=== PATIENT | female | born 1950 | race Two or more races ===

== ENCOUNTER 2017-12-14 10:10 | Outpatient (CLI) | payer OTHER | END 2017-12-14 14:21 | disposition home or self-care (01) | LOC: RAD 10:10 | DX: R68.84 Jaw pain (principal) ==

== ENCOUNTER 2018-08-07 14:21 | Outpatient (CLI) | payer OTHER | END 2018-08-07 14:26 | disposition home or self-care (01) | LOC: RAD 14:21 | DX: S57.02XA Crushing injury of left elbow, initial encounter (principal); S77.02 Crushing injury of left hip ==

== ENCOUNTER 2018-08-29 08:26 | Outpatient (CLI) | payer OTHER | END 2018-08-29 09:09 | disposition home or self-care (01) | LOC: RAD 501 08:26 | DX: M48.061 Spinal stenosis, lumbar region without neurogenic claudication (principal) ==

== ENCOUNTER 2019-05-28 10:42 | Outpatient (CLI) | payer OTHER | END 2019-05-28 10:55 | disposition home or self-care (01) | LOC: MAMO-SONO 10:42 | DX: N63.10 Unspecified lump in the right breast, unspecified quadrant (principal) ==

== ENCOUNTER 2020-12-22 09:05 | Outpatient (CLI) | payer OTHER | END 2020-12-22 09:15 | disposition HB | LOC: RAD 09:05 | PROVIDERS: ATTEND Internal Medicine | DX: M25.812 Other specified joint disorders, left shoulder (principal); M25.512 Pain in left shoulder ==

== ENCOUNTER 2021-01-13 08:01 | Outpatient (CLI) | payer OTHER | END 2021-01-13 08:08 | disposition home or self-care (01) | LOC: MAMO-SONO 08:01 | PROVIDERS: ATTEND Internal Medicine Hematology & Oncology | DX: D05.12 Intraductal carcinoma in situ of left breast (principal); Z17.0 Estrogen receptor positive status [ER+]; Z85.3 Personal history of malignant neoplasm of breast; Z12.31 Encounter for screening mammogram for malignant neoplasm of breast ==

== ENCOUNTER 2022-02-02 08:00 | Outpatient (CLI) | payer OTHER | END 2022-02-02 08:30 | disposition home or self-care (01) | LOC: PPH VACUNA 08:00 | PROVIDERS: ATTEND Emergency Medicine Pediatric Emergency Medicine | DX: Z23 Encounter for immunization (principal) ==

== ENCOUNTER 2022-08-16 09:43 | Outpatient (CLI) | payer OTHER | END 2022-08-16 09:53 | disposition home or self-care (01) | LOC: PPH VACUNA 09:43 | PROVIDERS: ATTEND Emergency Medicine Pediatric Emergency Medicine | DX: Z23 Encounter for immunization (principal) ==

== ENCOUNTER → 2022-11-03 | Emergency (ER) | payer OTHER ==
[~2022-11-03] VITALS: Ht 152.4 cm; Wt 49.9 kg
== END | disposition home or self-care (01) ==
LOC: ER 16:55
DX: M54.9 Dorsalgia, unspecified (principal); Z88.2 Allergy status to sulfonamides

== ENCOUNTER 2022-11-08 11:25 | Outpatient (CLI) | payer OTHER | END 2022-11-08 11:31 | disposition home or self-care (01) | LOC: RAD 11:25 | PROVIDERS: ATTEND Internal Medicine | DX: S79.912A Unspecified injury of left hip, initial encounter (principal); S59.902A Unspecified injury of left elbow, initial encounter ==

== ENCOUNTER 2022-12-13 09:55 | Outpatient (CLI) | payer OTHER | END 2022-12-13 09:57 | disposition home or self-care (01) | LOC: MAMO-SONO 09:55 | PROVIDERS: ATTEND Internal Medicine | DX: Z12.31 Encounter for screening mammogram for malignant neoplasm of breast (principal); N64.4 Mastodynia; N60.11 Diffuse cystic mastopathy of right breast ==

== ENCOUNTER 2023-07-12 08:28 | Outpatient (CLI) | payer OTHER | END 2023-07-12 08:36 | disposition home or self-care (01) | LOC: RAD 08:28 | PROVIDERS: ATTEND Internal Medicine | DX: Z01.818 Encounter for other preprocedural examination (principal) ==

== ENCOUNTER 2023-10-05 12:29 | Outpatient (CLI) | payer OTHER | END 2023-10-05 12:31 | disposition home or self-care (01) | LOC: NUCLEAR 12:29 | PROVIDERS: ATTEND Internal Medicine | DX: M81.0 Age-related osteoporosis without current pathological fracture (principal) ==

== ENCOUNTER 2024-07-05 07:42 | Outpatient (CLI) | payer OTHER | END 2024-07-05 07:47 | disposition home or self-care (01) | LOC: SONOGRAMA 07:42 | PROVIDERS: ATTEND Internal Medicine | DX: R32 Unspecified urinary incontinence (principal) ==

== ENCOUNTER 2025-01-31 10:51 | Outpatient (CLI) | payer OTHER | END 2025-01-31 11:01 | disposition home or self-care (01) | LOC: MAMO-SONO 10:51 | PROVIDERS: ATTEND Internal Medicine | DX: N64.4 Mastodynia (principal); R92.8 Other abnormal and inconclusive findings on diagnostic imaging of breast; Z12.31 Encounter for screening mammogram for malignant neoplasm of breast ==

== ENCOUNTER 2025-02-05 07:13 | Outpatient (CLI) | payer OTHER | END 2025-02-05 07:14 | disposition home or self-care (01) | LOC: NUCLEAR 07:13 | PROVIDERS: ATTEND Internal Medicine | DX: I20.9 Angina pectoris, unspecified (principal) | CPT/HCPCS: 78452; 93017; A9500 ==

== ENCOUNTER 2025-03-14 11:16 | Outpatient (CLI) | payer OTHER | END 2025-03-14 11:18 | disposition home or self-care (01) | LOC: SONOGRAMA 11:16 | PROVIDERS: ATTEND Internal Medicine | DX: K11.8 Other diseases of salivary glands (principal) ==

== ENCOUNTER 2025-07-04 11:59 | Outpatient (CLI) | payer OTHER | END 2025-07-04 12:01 | disposition home or self-care (01) | LOC: SONOGRAMA 11:59 | DX: N39.42 Incontinence without sensory awareness (principal) ==